=== PATIENT | male | born 1970 | race African-American/Black ===

== ENCOUNTER 2018-05-10 08:31 | Emergency (ER) | payer MEDICAID ==
[~2018-05-10] VITALS: Ht 190.5 cm; Wt 96.0 kg
[2018-05-10] MEDS ORDERED: IBUPROFEN 600MG TABLET PO ONE (09:45)
[2018-05-10 11:26] VITALS: BP 138/72
== END 2018-05-10 11:33 | disposition home or self-care (01) ==
LOC: ER 08:31
DX: S93.402A Sprain of unspecified ligament of left ankle, initial encounter (principal); W22.8XXA Striking against or struck by other objects, initial encounter; Y93.89 Activity, other specified; Y92.89 Other specified places as the place of occurrence of the external cause
CPT/HCPCS: 73610; 99283

== ENCOUNTER 2021-06-22 10:12 | Emergency (ER) | payer MEDICAID ==
[~2021-06-22] VITALS: Ht 190.5 cm; Wt 109.0 kg
[2021-06-22 10:15] VITALS: BP 166/94
[2021-06-22] MEDS ORDERED: KETOROLAC 60MG/2ML VIAL IM ONE (12:00)
[2021-06-22] MEDS ORDERED: METHOCARBAMOL 500MG TABLET PO ONE (12:00)
[2021-06-22] MEDS ORDERED: NAPR-681 MT (14:13)
[2021-06-22] MEDS ORDERED: METH-773 MT (14:13)
== END 2021-06-22 14:29 | disposition home or self-care (01) ==
LOC: ER 10:12
DX: M25.512 Pain in left shoulder (principal)
CPT/HCPCS: 73030; 93005; 96372; 99283; J1885